=== PATIENT | male | born 1995 | race Hispanic/Latino ===

== ENCOUNTER 2018-10-26 08:27 | Emergency (ER) | payer BC ==
[2018-10-26] MEDS ORDERED: Iohexol 240 (50 ml) PO STA (09:06)
--- NOTE | 2018-10-26 09:19 | C.PDOC ---
History Of Present Illness 23 y/o male pt (female to male transgender still with female organs) presents to the ER c/o umbilical and RLQ pain for x3 days. Associated sx includes decrease appetite and chills. Pt denies nausea, vomiting, and any urinary sx at this time. LMP was in September, next period some time this month in October. Time Seen by Provider: 10/26/18 08:53 Chief Complaint (Nursing): Abdominal Pain History Per: Patient History/Exam Limitations: no limitations Onset/Duration Of Symptoms: Days (x3) Current Symptoms Are (Timing): Still Present Location Of Pain/Discomfort: RLQ, Periumbilical Past Medical History Reviewed: Historical Data, Nursing Documentation, Vital Signs Vital Signs: Last Vital Signs Temp 99.2 F 10/26/18 08:36 Pulse 90 10/26/18 08:36 Resp 18 10/26/18 08:36 BP 123/68 10/26/18 08:36 Pulse Ox 100 10/26/18 08:36 Surgical History: Tonsillectomy Family History: States: No Known Family Hx - Social History Hx Alcohol Use: Yes Hx Substance Use: No - Immunization History Hx Tetanus Toxoid Vaccination: No Hx Influenza Vaccination: No Hx Pneumococcal Vaccination: No Review Of Systems Constitutional: Positive for: Chills, Other (decrease in appetite ) Gastrointestinal: Positive for: Abdominal Pain (umbilical and RLQ ). Negative for: Nausea, Vomiting Genitourinary: Negative for: Dysuria, Frequency, Incontinence, Hematuria Physical Exam - Physical Exam Appears: Well, Non-toxic, No Acute Distress, Other (well nourished) Skin: No Rash Head: Atraumatic, Normacephalic Eye(s): bilateral: PERRL, EOMI Neck: Supple Chest: No Tenderness Cardiovascular: Rhythm Regular, No Murmur Respiratory: No Rales, No Rhonchi, No Wheezing, Other (CTA b/l ) Gastrointestinal/Abdominal: Bowel Sounds (normoactive ), Soft, Tenderness (RLQ), No Guarding, No Rebound Neurological/Psych: Oriented x3, Normal Speech, Normal Cognition ED Course And Treatment - Laboratory Results Result Diagrams: 10/26/18 09:20 10/26/18 09:20 O2 Sat by Pulse Oximetry: 100 (RA) Pulse Ox Interpretation: Normal Medical Decision Making Medical Decision Making: plan: -- chem labs -- blood work -- UA pt found to be transvaginal us ordered to eval for ectopic. Rober from [facility] office came to see patient in ED. pt with no ectopic . has iup, still with rlq pain, will consult surgery pt seen by Dr Esquivel, surgical oncologist. recommends abdominal mri to eval for appendicitis. pt aware of possible risks of mri to . MRI neg for appendicitis. discussed with Dr Baker from [facility]. will d/c pt with [facility] f/u, advised to return for any worse pain or other concerns. Disposition Counseled Patient/Family Regarding: Studies Performed, Diagnosis, Need For Followup, Rx Given - Disposition [facility]errals[facility]] Disposition: HOME/ ROUTINE Disposition Time: 17:20 Condition: GOOD Additional Instructions: Follow up with gynecology as soon as possible. [facility] go to [facility]. [facility]. [phone] Return to ER for any worse pain, fever, vomiting, bleeding or any other concerns. Prescriptions: Multivit/Folic Acid/I [ Plus] 1 tab PO DAILY #30 tab Instructions: Stomach Pain in Early Forms: [facility] (Indonesian), General Discharge Instructions - Clinical Impression Clinical Impression: Abdominal pain, at early stage - PA / DITCH TENDER / Resident Statement / has reviewed & agrees with the documentation as recorded. - Scribe Statement The provider has reviewed the documentation as recorded by the Hawa Schulte Do All medical record entries made by the Scribe were at my direction and personally dictated by me. I have reviewed the chart and agree that the record accurately reflects my personal performance of the history, physical exam, medical decision making, and the department course for this patient. I have also personally directed, reviewed, and agree with the discharge instructions and disposition.
[2018-10-26 09:25] LABS: BASO % 0.6 % (0.0-2.0); EOS % 0.4 % (0.0-4.0); LYMPH # 1.7 K/uL (1.0-4.3); LYMPH % 25.5 % (20.0-40.0); MEAN CELL VOLUME 85.4 fL (80.0-94.0); MEAN CORPUSCULAR HEMOGLOBIN 28.9 pg (27.0-31.0); MEAN CORPUSCULAR HGB CONC 33.9 g/dL (33.0-37.0); MEAN PLATELET VOLUME 8.5 fL (7.2-11.7); MONO # 0.3 K/uL (0.0-0.8); MONO % 5.2 % (0.0-10.0); NEUT # 4.4 K/uL (1.8-7.0); NEUT % 68.3 % (50.0-75.0); RBC 4.5 Mil/uL (4.40-5.90); RED CELL DISTRIBUTION WIDTH 13.3 % (11.5-14.5); WHITE BLOOD COUNT 6.5 K/uL (4.8-10.8)
[2018-10-26 09:28] LABS: SQUAMOUS EPITHIAL 9 /hpf (0-5); URINE BACTERIA RARE (<OCC); URINE BILIRUBIN NEGATIVE (NEGATIVE); URINE BLOOD NEGATIVE (NEGATIVE); URINE CLARITY Hazy (Clear); URINE COLOR Yellow (YELLOW); URINE GLUCOSE (UA) NORMAL (Normal); URINE LEUKOCYTE ESTERASE NEG Leu/uL (Negative); URINE PROTEIN NEGATIVE (NEGATIVE); URINE UROBILINOGEN NORMAL mg/dL (0.2-1.0)
[2018-10-26 09:32] LABS: HCG,QUALITATIVE URINE POSITIVE
[2018-10-26 09:38] LABS: ALB/GLOB RATIO 1.9 (1.0-2.1); ALBUMIN 4.7 g/dL (3.5-5.0); ALT/SGPT 14 U/L (21-72); AST/SGOT 17 U/L (17-59); BLOOD UREA NITROGEN 8 mg/dL (9-20); CALCIUM 9.9 mg/dl (8.6-10.4); GFR NON-AFRICAN AMERICAN > 60; LIPASE 54 U/L (23-300)
[2018-10-26 12:16] VITALS: TEMP 98.4
--- NOTE | 2018-10-26 12:38 | US ---
Date of service: 10/26/2018 PROCEDURE: OB Pelvic Ultrasound HISTORY: right pelvic pain eval for ectopic COMPARISON: None available. FINDINGS: UTERUS: Single Live intrauterine gestation. Yolk sac is visualized. CRL measures 0.53 cm corresponding to 6 weeks and 2 days of gestational age. Gestational sac diameter measures 1.30 cm equivalent 5 weeks and 4 days of gestational age. age (Ultrasound estimated): 6 weeks and 0 day Date of delivery (Ultrasound estimated) : 06/21/2019 Heart rate: 118 bpm. Tabatha-gestational hemorrhage: None. Uterus measures 8.9 x 5.3 x 5.9 cm. No mass CERVIX: Long and closed. No cervical abnormality seen. RIGHT OVARY: Measures 3.67 x 1.26 x 2.82 cm. No mass. Normal flow. LEFT OVARY: Measures 4.80 x 3.59 x 4.13 cm. No mass. Normal flow. There are 2 simple cysts measuring 1.6 x 1.0 x 1.6 cm and 1.8 x 1.3 x 1.8 cm FREE FLUID: There is small amount of free fluid in the cul de sac of uncertain etiology and clinical significance. OTHER FINDINGS: None. IMPRESSION: Single live intrauterine gestation with mean gestational age of 6 weeks and 0 day. The estimated date of delivery by ultrasound is 06/21/2019. The ultrasound dates correspond with the clinical dates.
--- NOTE | 2018-10-26 14:13 | US ---
Date of service: 10/26/2018 PROCEDURE: Abdominal ultrasound limited HISTORY: rlq pain, COMPARISON: None available. TECHNIQUE: Targeted high-resolution ultrasound of the right lower quadrant was performed with real-time linear scanner. FINDINGS: There are peristalsing bowel loops in the right lower quadrant as documented by the technologist. The appendix is not visualized. No evidence of free fluid in the right lower quadrant. IMPRESSION: The appendix is not visualized. Nonvisualization of the appendix does not exclude acute appendicitis. Clinical follow-up is advised.
[2018-10-26] MEDS ORDERED: Sodium Chloride 0.9% 1,000 ML IV ONE (14:29)
--- NOTE | 2018-10-26 15:26 | CP.PCM.CON ---
History of Present Illness - History of Present Illness History of Present Illness: General Surgery: Arago patient is a 23 yr old female to male transgender patient, without surgical transition, not currently on hormone therapy presenting to [facility] ED d/t RLQ abdominal pain. Pt was subsequently found to have 6 week IUP. RLQ US was unable to visualize appendix. patient states pain began 1 week ago and worsened over the past 48 hours. endorses nausea, anorexia, chills and increased pain with coughing. Patient otherwise denies YOUNG, CP, SOB, fevers, vomiting, stool changes, vaginal discharge and dizziness. PMH: female to male transition, no surgery, not currently on hormones PSH: tonsils, bilateral mastectomy All: Pineapple Social: denies Medications: none Review of Systems - Review of Systems All systems: reviewed and no additional remarkable complaints except (as per HPI) Past Patient History - Past Social History Smoking Status: Never Smoked - PSYCHIATRIC Hx Substance Use: No - SURGICAL HISTORY Hx Tonsillectomy: Yes - ANESTHESIA Hx Anesthesia: Yes Hx Anesthesia Reactions: No Hx Malignant Hyperthermia: No Meds Allergies/Adverse Reactions: Allergies Allergy/AdvReac Type Severity Reaction Status Date / Time pinapple Allergy SWELLING Uncoded 10/26/18 08:40 - Medications Medications: Current Medications Sodium Chloride (Sodium Chloride 0.9%) 1,000 mls @ 1,000 mls/hr IV .Q1H ONE Stop: 10/26/18 15:28 Physical Exam - Constitutional Appears: Well, Non-toxic, No Acute Distress - Head Exam Head Exam: ATRAUMATIC, NORMOCEPHALIC - Eye Exam Eye Exam: EOMI - ENT Exam ENT Exam: Mucous Membranes Moist - Respiratory Exam Respiratory Exam: NORMAL BREATHING PATTERN - Cardiovascular Exam Cardiovascular Exam: REGULAR RHYTHM - GI/Abdominal Exam GI & Abdominal Exam: Guarding (RLQ), Rebound, Soft, Tenderness (RLQ). absent: Distended - Extremities Exam Extremities exam: Positive for: pedal pulses present. Negative for: calf tenderness, pedal edema - Neurological Exam Neurological exam: Alert, Oriented x3 - Psychiatric Exam Psychiatric exam: Normal Affect, Normal Mood - Skin Skin Exam: Dry, Intact, Normal Color, Warm Results - Vital Signs Recent Vital Signs: Last Vital Signs Temp 98.4 F 10/26/18 12:16 Pulse 80 10/26/18 12:16 Resp 16 10/26/18 12:16 BP 112/70 10/26/18 12:16 Pulse Ox 100 10/26/18 14:29 - Labs Result Diagrams: 10/26/18 09:20 10/26/18 09:20 Labs: Laboratory Results - last 24 hr 10/26/18 10/26/18 10/26/18 09:20 09:20 09:20 WBC 6.5 RBC 4.50 Hgb 13.0 Hct 38.4 MCV 85.4 MCH 28.9 MCHC 33.9 RDW 13.3 Plt Count 322 MPV 8.5 Neut % (Auto) 68.3 Lymph % (Auto) 25.5 [place] % (Auto) 5.2 Eos % (Auto) 0.4 Baso % (Auto) 0.6 Neut # (Auto) 4.4 Lymph # (Auto) 1.7 [place] # (Auto) 0.3 Eos # (Auto) 0.0 Baso # (Auto) 0.0 Sodium 138 Potassium 3.6 Chloride 104 Carbon Dioxide 23 Anion Gap 16 BUN 8 L Creatinine 0.6 L Est GFR ( Amer) > 60 Est GFR (Non-Af Amer) > 60 Random Glucose 92 Calcium 9.9 Total Bilirubin 0.8 AST 17 ALT 14 L Alkaline Phosphatase 59 Total Protein 7.1 Albumin 4.7 Globulin 2.4 Albumin/Globulin Ratio 1.9 Lipase 54 Beta HCG, Quant 55532.00 Urine Color Yellow Urine Clarity Hazy Urine pH 6.0 Ur Specific [place] 1.011 Urine Protein Negative Urine Glucose (UA) Normal Urine Ketones Trace Urine Blood Negative Urine Nitrate Negative Urine Bilirubin Negative Urine Urobilinogen Normal Ur Leukocyte Esterase Neg Urine WBC (Auto) 1 Urine RBC (Auto) < 1 Ur Squamous Epith Cells 9 H Urine Bacteria Rare Urine HCG, Qual Positive Assessment & Plan - Assessment and Plan (Free Text) Assessment: 23 yr old female to male transgender patient, no surgery not currently on Hormones presenting with 6 week IUP and possible appendicitis Plan: -recommend MRI to r/o appendicitis, will f/u results and proceed accordingly - IV abx, avoid teratogenics - pain control - antiemetics PRN - discussed with Dr. Althea Esquivel, PGY 1 - Date & Time Date: 10/26/18 Time: 13:58
[2018-10-26 16:18] VITALS: BP 121/70; PULSE 82; RESP 18
--- NOTE | 2018-10-26 16:33 | MRI ---
Date of service: 10/26/2018 PROCEDURE: MRI pelvis HISTORY: preg with rlq pain COMPARISON: Not available TECHNIQUE: Multiplanar, multi sequence imaging of the pelvis was performed without intravenous gadolinium administration. FINDINGS: A normal appendix is identified. The cecum is unremarkable in appearance. There is a small amount of fluid seen in the right pericolic gutter. There is no pelvic fluid collection. The uterus is significant for what is likely an intrauterine gestational sac, corresponding to a 6 weeks 0 day as demonstrated on ultrasound examination of 10/26/2018. There is no uterine mass. The left ovary contains several cysts, 1.7 cm in diameter maximum. These are likely physiologic. The right ovary is unremarkable, with tiny follicles. There are no adnexal masses identified. There is no pelvic lymphadenopathy. The urinary bladder is unremarkable in appearance. The kidneys are unremarkable. The visualized liver and spleen are unremarkable in appearance. There is no pancreatic mass or peripancreatic fluid collection identified. The marrow signal of the visualized osseous structures is within normal limits. IMPRESSION: No evidence of acute appendicitis. Trace fluid in the right pericolic gutter common nonspecific. No other significant identified.
[2018-10-26 17:20] VITALS: O2SAT 100
== END 2018-10-26 17:49 | disposition home or self-care (01) ==
LOC: C.ER 08:27
DX: R10.31 Right lower quadrant pain (principal)